=== PATIENT | male | born 2000 | race American Indian/Alaskan Native ===

== ENCOUNTER 2021-06-15 01:20 | Emergency (ER) | payer OTHER ==
[2021-06-15] MEDS ORDERED: TETANUS,DIPH,PERTUSS(ACELL) VACCINE 0.5 ML SYRINGE IM ONE (06:14)
[2021-06-15] MEDS ORDERED: LIDOCAINE (1%) 10 MG/1 ML VIAL 20 ML MDV INFILTRATI ONE (06:14)
--- NOTE | 2021-06-15 06:28 | Emergency Department Report ---
- General Chief Complaint: Wound/Laceration Stated Complaint: R forearm laceration Time Seen by Provider: 06/15/21 06:03 Source: patient Mode of arrival: Ambulatory Limitations: No Limitations - History of Present Illness Initial Comments: Patient presents with a laceration of the right forearm. This was sustained by cristino. He states that he put his arm through a window after he fell. He then later states that the bleeding was worse when he was driving. Regardless, he is ambidextrous. He states that he writes with his right hand. He plays sports with his left hand. He sustained a laceration to the right forearm. Again, this was from glass. He is uncertain of his last tetanus booster. He is complaining of localized pain. There is no other injury. He does not believe there is any glass that is stuck in the wound. - Related Data Previous Rx's Medication Instructions Recorded Last Taken Type cephALEXin [Keflex] 500 mg PO Q6HR #30 tab 06/15/21 Unknown Rx Allergies Allergy/AdvReac Type Severity Reaction Status Date / Time No Known Allergies Allergy Verified 06/15/21 06:49 ED Review of Systems ROS: Stated complaint: R forearm laceration Other details as noted in HPI Comment: All other systems reviewed and negative Constitutional: denies: fever Eyes: denies: vision change ENT: denies: epistaxis Respiratory: other (No hemoptysis) Cardiovascular: denies: chest pain Gastrointestinal: denies: hematemesis Genitourinary: denies: hematuria Musculoskeletal: denies: back pain Skin: as per HPI Hematological/Lymphatic: denies: easy bruising ED Past Medical Hx - Past Medical History Previous Medical History?: No - Surgical History Past Surgical History?: No - Family History Family history: no significant - Medications Home Medications: Home Medications Medication Instructions Recorded Confirmed Last Taken Type cephALEXin [Keflex] 500 mg PO Q6HR #30 tab 06/15/21 Unknown Rx ED Physical Exam - General Limitations: No Limitations, Other (Pulse ox noted and normal) General appearance: alert, in no apparent distress - Head Head exam: Present: atraumatic, normocephalic - Eye Eye exam: Present: normal appearance, EOMI - ENT ENT exam: Present: normal external ear exam - Neck Neck exam: Present: normal inspection. Absent: tenderness - Respiratory Respiratory exam: Absent: respiratory distress - Cardiovascular Cardiovascular Exam: Present: other (Pulses equal and symmetric). Absent: JVD - GI/Abdominal GI/Abdominal exam: Present: other (Flat) - Extremities Exam Extremities exam: Present: normal capillary refill - Back Exam Back exam: Present: full ROM - Neurological Exam Neurological exam: Present: alert, oriented X3, normal gait - Psychiatric Psychiatric exam: Present: normal affect, normal mood - Skin Skin exam: Present: warm, dry ED Course Vital Signs 06/15/21 03:01 Temperature 98.3 F Pulse Rate 62 Respiratory 16 Rate Blood Pressure 151/96 [Left] O2 Sat by Pulse 99 Oximetry - Reevaluation(s) Reevaluation #1: 06/15/21 06:28 Lidocaine was ordered. Old records noted. Reevaluation #2: 06/15/21 07:48 Wound was repaired. Splint was applied. Patient was discharged. - Procedure Description Procedures done: Procedure note: Splint application. Indication: Tendon laceration right forearm. Patient had been treated for a tendon laceration and skin laceration involving the right forearm. A volar splint was applied by the tech staff. After plate was applied, patient had brisk capillary refill. Pulses were intact. There was no obvious neurovascular deficit. Patient tolerated this without difficulty. - Laceration /Wound Repair Arm Wound Location: upper extremity (Right forearm distal third) Wound's Depth, Shape: into muscle, irregular, flap Wound Explored: foreign body removed (X2) Irrigated w/ Saline (ccs): 250 Betadine Prep?: Yes Anesthesia: 1% Lidocaine Volume Anesthetic (ccs): 8 Wound Repaired With: sutures Suture Size/Type: 4:0, nylon Number of Sutures: 6 Layer Closure?: No Sterile Dressing Applied?: Yes Progress: Patient has obvious flexor tendon laceration. There is no obvious functional deficit however. Volar splint was applied ED Medical Decision Making - Medical Decision Making Patient presented with a laceration above the right forearm. He had evidence of a tendon laceration. The skin was closed. Patient was placed in a splint and referred to orthopedics for specialty follow-up. We discussed laceration symptoms of infection. We discussed the tendon laceration and need for repair and follow-up. He is right-hand dominant. He was referred to orthopedic surgery. He was splinted in the interim. There were foreign bodies noted. We removed all that we saw. We did discuss possible retained foreign body. Critical Care Time: No Critical care attestation.: If time is entered above; I have spent that time in minutes in the direct care of this critically ill patient, excluding procedure time. ED Disposition Clinical Impression: Laceration of right forearm Qualifiers: Encounter type: initial encounter Qualified Code(s): S51.811A - Laceration without foreign body of right forearm, initial encounter Flexor tendon laceration of forearm with open wound Qualifiers: Encounter type: initial encounter Laterality: right Qualified Code(s): S56.221A - Laceration of other flexor muscle, fascia and tendon at forearm level, right arm, initial encounter; S51.801A - Unspecified open wound of right forearm, initial encounter Disposition: HOME / SELF CARE / HOMELESS Is pt being admited?: No Condition: Stable Instructions: Wound Infection, Sutured Wound Care, Tendon Repair Additional Instructions: Wear the splint. Keep the wound clean. Ice and elevate. Follow-up for the tendon laceration as discussed and referred. If you develop any evidence of wound infection including warmth, pain, redness, or drainage, please return. Take the antibiotics as prescribed. Prescriptions: cephALEXin [Keflex] 500 mg PO Q6HR #30 tab Referrals: PRIMARY CAREMD [Primary Care Provider] - 3-5 Days RAY HULL MD [Staff Physician] - 3-5 Days NURA LEES MD [Staff Physician] - 3-5 Days
[2021-06-15 08:28] VITALS: BP 112/63
== END 2021-06-15 08:27 | disposition home or self-care (01) ==
LOC: ED 01:20
DX: S51.821A Laceration with foreign body of right forearm, initial encounter (principal); S56.221A Laceration of other flexor muscle, fascia and tendon at forearm level, right arm, initial encounter; X58.XXXA Exposure to other specified factors, initial encounter; Y93.89 Activity, other specified; Y92.89 Other specified places as the place of occurrence of the external cause; Y99.8 Other external cause status
CPT/HCPCS: 12031; 90715; 99282; J3490